=== PATIENT | male | born 1980 | race Asian ===

== ENCOUNTER 2022-10-20 12:33 | Emergency (ER) | payer OTHER ==
[~2022-10-20] VITALS: Ht 175.3 cm; Wt 81.8 kg
[2022-10-20] MEDS ORDERED: COLCHICINE 0.6 MG TABLET PO ONE (14:15)
[2022-10-20] MEDS ORDERED: IBUPROFEN 600 MG TABLET PO ONE (14:15)
[2022-10-20 15:25] VITALS: BP 140/80
[2022-10-20] MEDS ORDERED: IBUP-1492 PO (15:32)
== END 2022-10-20 15:40 | disposition home or self-care (01) ==
LOC: EMS 12:36
DX: M10.9 Gout, unspecified (principal); I10 Essential (primary) hypertension
CPT/HCPCS: 99283